=== PATIENT | male | born 1985 | race Two or more races ===

== ENCOUNTER 2023-06-07 14:36 | Emergency (ER) | payer SELFPAY ==
[~2023-06-07] VITALS: Ht 170.2 cm; Wt 99.1 kg
[2023-06-07] MEDS ORDERED: SILV1CRE82 TOP (18:08)
[2023-06-07] MEDS ORDERED: PERCOT PO (18:08)
[2023-06-07] MEDS ORDERED: CEPH500C PO (18:08)
[2023-06-07] MEDS ORDERED: IBUP-1455 PO (18:08)
[2023-06-07] MEDS: HYDROmorphone HCL 2 MG/ML VL/or syr IM ONE (20:09)
[2023-06-07] MEDS: TETANUS-DIPTH-ACEL PERTUSSIS 0.5ML SYR Tdap IM ONE (20:10)
[2023-06-07] MEDS: SILVER SULFADIAZINE 1 % TOPICAL CREAM 50GM TOP ONE (20:12)
[2023-06-07 20:13] VITALS: PULSE 68; RESP 18; TEMP 98; O2SAT 98
[2023-06-07 20:40] VITALS: BP 136/94; PULSE 68; RESP 18
== END 2023-06-07 20:42 | disposition home or self-care (01) ==
LOC: ER 14:36
DX: T23.201A Burn of second degree of right hand, unspecified site, initial encounter (principal); X08.8XXA Exposure to other specified smoke, fire and flames, initial encounter; Y93.89 Activity, other specified; Y92.89 Other specified places as the place of occurrence of the external cause; Y99.8 Other external cause status
CPT/HCPCS: 16020; 90471; 90715; 96372; 99284; J1170